=== PATIENT | male | born 1930 ===

== ENCOUNTER 2016-06-25 16:57 | Emergency (ER) | payer MEDICARE, OTHER ==
[~2016-06-25] VITALS: Ht 165.1 cm; Wt 74.5 kg
[~2016-06-25 16:57] MED LIST: AMLO10TA79 PO; ASPI81TA2 PO; CITA20TA2 PO; DONE10TA15 PO; FAMO40TA PO; FES300 PO; FURO20TA PO; GABA300C PO; HYDR1TAB90 PO; LIDO700A25 TP; LOPRESSOR25 MG PO; MELO15TA3 PO; NITR0.4T SL; OXYC5TAB72 PO; PRI20 PO; SIMV40TA5 PO; SIN10 PO; TIOT18CA IH; TYL325 PO; VIT1TABL83 PO; [UNRECOGNIZED DRUG - CODE] PO
[2016-06-25 17:00] VITALS: BP 142/78; PULSE 86; RESP 20; O2SAT 97
--- NOTE | 2016-06-25 17:27 | ED.REPORT ---
HPI-Back Pain 40 and Over Date of Service Jun 25, 2016 ED Provider: Simi Rooney History of Present Illness: 86-year-old male here for loss of bowel and bladder. For the last 3 days he has had 3 or 4 episodes a day of urinary and stool incontinence. He usually occurs when he is walking and states the urine or stool just comes out. The stool when it comes out as semisolid not like diarrhea. He has vague abdominal pain as well but no nausea or vomiting. He has not had an incontinent episode of stool today. He does not have any dysuria although he has had urinary incontinence today. He does have low back pain that is chronic. He was seen by his pain specialist today who sent him in here for further evaluation. He has numbness of his legs and this is chronic for him. No saddle anesthesia. He does not have any new back pain. He does not have pain down his legs. hx alcoholism Nursing Notes Stated Complaint: BACK PAIN Chief Complaint: Back Pain or Injury Nursing Notes Reviewed: Yes Allergies: Coded Allergies: No Known Allergies (Verified , 01/03/13) Scheduled Acetaminophen-Expunged Drug, Do Not Renew! (Tylenol-Expunged Drug, Do Not Renew! ) 325 Mg Tablet 650 MG PO Q6H AmLODIPine-Expunged Drug, Do Not Renew! (AmLODIPine-Expunged Drug, Do Not Renew! ) 10 Mg Tablet 5 MG PO AM Aspirin-Expunged Drug, Do Not Renew! (Aspirin-Expunged Drug, Do Not Renew!) 81 Mg Tablet 81 MG PO AM Citalopram-Expunged Drug, Do Not Renew! (Citalopram-Expunged Drug, Do Not Renew! ) 20 Mg Tablet 20 MG PO AM Cyanocobalamin (Vitamin B-12) (B-12) 500 Mcg Tablet 2,500 MCG PO AM Donepezil-Expunged Drug, Do Not Renew! (Donepezil-Expunged Drug, Do Not Renew!) 10 Mg/Udtablet Tab.rapdis 10 MG PO HS Famotidine-Expunged Drug, Do Not Renew! (Famotidine-Expunged Drug, Do Not Renew! ) 40 Mg Tablet 40 MG PO AM Ferrous Sulfate-Expunged Drug, Do Not Renew! (Feosol-Expunged Drug, Do Not Renew !) 325 Mg Tablet 325 MG PO PM Furosemide-Expunged Drug, Do Not Renew! (Lasix-Expunged Drug, Do Not Renew!) 20 Mg Tablet 40 MG PO AM Lidocaine (Lidocaine) 700 Mg Adh..patch TP NO SIG VERIFY DOSE AND SIG Meloxicam-Expunged Drug, Do Not Renew! (Meloxicam-Expunged Drug, Do Not Renew!) 15 Mg Tablet 15 MG PO NO SIG VERIFY SIG Metoprolol Tart-Expunged Drug, Do Not Renew! (Metoprolol Tart-Expunged Drug, Do Not Renew!) 25 Mg Tab 12.5 MG PO Q12 TAKE IN AM AND PM Montelukast-Expunged Drug, Do Not Renew! (Singulair-Expunged Drug, Do Not Renew! ) 10 Mg Tablet 10 MG PO PM Nitroglycerin-Expunged Drug, Do Not Renew! (Nitroglycerin SL-Expunged Drug, Do Not Renew!) 0.4 Mg Tab.subl 0.4 MG SL pr Omeprazole-Expunged Drug, Do Not Renew! (Omeprazole-Expunged Drug, Do Not Renew! ) 20 Mg Capcr 20 MG PO PM Simvastatin-Expunged Drug, Choose New Med! (Simvastatin-Expunged Drug, Choose New Med!) 40 Mg Tablet 40 MG PO HS Tiotropium Br-Expunged Drug, Do Not Renew! (Spiriva-Expunged Drug, Do Not Renew! ) 18 Mcg/Puff Pack 18 MCG IH DAILY Vit B Comp/C/Fa/Iron/Vit E-Expunged Drug, Do (Vitamin B Complex-Expunged Drug, Do Not Renew) 1 Each Tablet EACH PO NO SIG VERIFY DOSE AND SIG Scheduled PRN Gabapentin-Expunged Drug, Do Not Renew! (Neurontin-Expunged Drug, Do Not Renew! ) 300 Mg Capsule 300 MG PO TID PRN PRN PRN Hydrocodone Bit/Acetaminophen (Anexsia 5/325 Mg Tablet) 1 Tab Tablet TAB PO NO SIG PRN PRN VERIFY DOSE AND SIG oxyCODONE-Expunged, Do Not Renew! (oxyCODONE-Expunged, Do Not Renew!) 5 Mg Tablet 5 MG PO Q4-6H PRN PRN For Pain General Time Seen by MD: 17:24 Chief Complaint Back pain, Other (loss of bowel/bladder) Hx Obtained From: Patient Sudden in Onset?: No Onset Occurred: 4 days ago Caused by: Chronic Injury Severity: Current: Mild Severity: Maximum: Mild Recent Healthcare: Recent doctor visit Similar Sx Previous: No Review of Systems Basic Review of Systems Eyes: Vision NL, No discharge ENT: Hearing NL, No pain, No nasal congestion, No pharyngeal pain Constitutional: Denies: Chills, Fatigue, Fever, Lethargy, Malaise, Recent wt loss, Weakness - generalized Respiratory: Denies: Dyspnea on exertion, Hemoptysis, Non-productive cough, Parox nocturnal dyspnea, Pleuritic pain, Prod cough, bloody, Prod cough, brown, Prod cough, clear, Prod cough, green, Prod cough, white, Prod cough, yellow, Shortness of breath, Wheezing GI: Denies: Abdominal pain, Anorexia, Belching, Bloody/tarry stool, Constipation, Diarrhea, Dysphagia, Hematemesis, Hematochezia, Melena, Mucousy stool, Nausea, Rectal pain, Vomiting Male: Reports Incontinence, Denies Dysuria Musculoskeletal: Reports: Back pain Neurologic: Reports: Bladder dysfunction, Bowel dysfunction, Confusion Complete sys rev & neg: except as marked. Physical Exam Initial Vital Signs Vital Signs (First) Date Time Temp Pulse Resp B/P Pulse Ox O2 Delivery O2 Flow Rate FiO2 06/25/16 17:00 36.2 86 20 142/78 97 Room Air Initial VS: Reviewed Head / Eyes: Atraumatic, Normocephalic, PERRL ENT: Mucous membranes moist, Conjunctiva normal, No scleral icterus Neck: Supple, Non-tender, Full range of motion Skin: Warm, Dry, No cyanosis Psychiatric: Mood/affect normal, Behavior normal, Normal thought content General/Constitutional: Awake, Alert, No acute distress, Well appearing, Well developed, Well hydrated Respiratory / Chest: Breath sounds NL, Breath sounds = bilat, No respiratory distress, No rales, No rhonchi, No wheezing Cardiovascular: Heart rate NL, Regular rhythm, Heart sounds NL, No murmurs, Peripheral circulation NL Abdomen: Atraumatic, Soft, Non-tender, No guarding, No rebound, BS normoactive , No distention, No palpable mass, No pulsatile mass Back: Atraumatic, Inspection NL, Full range of motion, Painless range of motion , Non-tender, No midline vertebral tend, No paraspinal tenderness, No muscle spasm, Straight leg raise neg, No CVA tenderness Straight Leg Raise: Positive: Strt leg raise + L 50 deg, Strt leg raise + R 50 deg walks slowly with walker, without limp Neurologic: Oriented X3, Speech NL, No motor deficits, No sensory deficits, Reflexes equal bilat unalbe to elicit patellar reflexes. rectal tone intact. LE strength intact equally. sensation intact Neck: Atraumatic, Supple, No meningismus, Full range of motion, No swelling, Non-tender, No midline vertebral tend, No masses, No crepitus Lower Extremity / Pelvis / MS: Atraumatic, Inspection NL, No swelling, Non- tender, No erythema, No deformity, Neurologic intact, Vascular intact, No edema Rectum / Perineum: Blood - occult heme -, Sphincter tone NL, Prostate NL, No saddle anesthesia Interpretation & Diagnostics Interpretation & Diagnostics: MR#: [id number] Location: [facility] [place] Ordering Phys: Simi Rooney [facility] Date of Service: 06/25/161924 PROCEDURE: X-RAY ACUTE ABDOMINAL SERIES ([id number]) INDICATIONS: Abdominal pain TECHNIQUE: One view chest and two views of the abdomen were acquired. COMPARISON: [facility], , CHEST 2VW, 09/28/2013, 16:00. [facility], , CHEST 2VW, 05/21/2014, 17:48. [facility], CR, ABD W/ERECT +/OR DECB, 01/03/2013, 10:54. FINDINGS: Surgical changes and devices: None. Chest: No acute consolidation. There is a calcified pleural plaque peripherally in the left hemithorax again noted. Heart size is at upper limits of normal. No pleural effusions. No pneumoperitoneum. Abdomen: Bowel gas pattern is within normal limits. No suspicious calcifications. Bones: No suspicious bony lesions. There is a mild leftward curvature of the lumbar spine. IMPRESSION: 1. No acute intra-abdominal radiographic abnormality. Lab Results Interpretation Result Diagram: 06/25/16 1800 06/25/16 1800 Test 06/25/16 18:00 06/25/16 18:04 White Blood Count 8.1th/mm3 (3.8-10.1) Red Blood Count 3.81mil/mm3 (4.40-5.80) Hemoglobin 12.1g/dL (13.8-17.2) Hematocrit 36.7% (41.0-50.0) Mean Corpuscular Volume 96.3fL (81-100) Mean Corpuscular Hemoglobin 31.8pg (27.0-35.0) Mean Corpuscular Hemoglobin Concent 33.0% (32.0-37.0) Red Cell Distribution Width 13.3% (12.3-15.4) Platelet Count 291bil/L (150-400) Neutrophils (%) (Auto) 64.9% (40-74) Lymphocytes (%) (Auto) 20.7% (14-46) Monocytes (%) (Auto) 10.5% (4-12) Eosinophils (%) (Auto) 3.0% (0-5) Basophils (%) (Auto) 0.7% (0-3) Sodium Level 138mEq/L (134-144) Potassium Level 4.1mEq/L (3.5-5.2) Chloride Level 102mEq/L (97-108) Carbon Dioxide Level 22mmol/L (18-29) Blood Urea Nitrogen 16mg/dL (8-27) Creatinine 1.17mg/dL (0.76-1.27) Estimat Glomerular Filtration Rate 63mL/min (>59) Glucose Level 120mg/dL (60-99) Calcium Level 8.9mg/dL (8.5-10.1) Total Bilirubin 0.2mg/dL (0.0-1.2) Aspartate Amino Transf (AST/SGOT) 21U/L (0-50) Alanine Aminotransferase (ALT/SGPT) 14U/L (0-44) Alkaline Phosphatase 99U/L (25-160) Total Protein 7.3g/dL (6.4-8.4) Albumin 3.8g/dL (3.4-5.0) Alcohols < 10mg/dL (0-10) Urine Color Yellow (YELLOW) Urine Appearance Clear (CLEAR,HAZY) Urine pH 6.0 (5.0-8.0) Urine Specific Wilson 1.010 (1.003-1.035) Urine Protein Negativemg/dL (NEG,TRACE) Urine Glucose (UA) Negativemg/dL (NEGATIVE) Urine Ketones Negativemg/dL (NEGATIVE) Urine Occult Blood Negative (NEGATIVE) Urine Nitrite Negative (NEGATIVE) Urine Bilirubin Negative (NEGATIVE) Urine Urobilinogen Normalmg/dL (NORMAL) Urine Leukocyte Esterase Trace (NEGATIVE) Urine RBC 0-2/hpf (0-2) Urine WBC 0-5/hpf (0-5) Urine Epithelial Cells Occasional/hpf (NONE-MOD) Urine Crystals None seen (NONE SEEN) Urine Bacteria None/hpf (NONE-FEW) Urine Hyaline Casts None/lpf (NONE) Urine Granular Casts None seen (NONE SEEN) Urine Waxy Casts None seen (NONE SEEN) Urine Red Blood Cell Casts None seen (NONE SEEN) Urine White Blood Cell Casts None seen (NONE SEEN) Urine Mucus None seen (None Seen) Urine Trichomonas None seen (NONE SEEN) Urine Yeast None (NONE SEEN) Urinalysis Comment None Re-Eval/Medical Decision Med Decision/Clinical Course Patient clarifies that when he has a bowel movement in his pants is just a tiny little bit but is not necessarily related to passing gas. When he urinates and is pain it is just a few dribbles does not necessarily a full stream of urination. the only time he needs to go urinate is when he is walking. discussed with dr beck. agrees wtih d/c and f/u with pcp pt neuro intact upon d/c walking without limp usinng walker. LE strenght good. Discharge & Departure Shift Change Sign-Out Laboratory Evaluation: Lab evaluation discussed Imaging Studies: Imaging discussed Response to Therapy: Improved Impression: Primary Impression: Low back pain Chronicity: unspecified Back pain laterality: unspecified Sciatica presence : without sciatica Qualified Code: M54.5 - Low back pain Additional Impression: Urinary bladder incontinence Urinary Incontinence type: stress incontinence Qualified Code: N39.3 - Stress incontinence (female) (male) Disposition: Home Discharge Condition All VS Reviewed: Yes Condition: Stable Additional Instructions: Follow-up with your doctor in 1-2 days. Use pain meds as prescribed. return if symptoms become severe, you get urinary symptoms, fevers, or lower extremety weakness or severe back pain Referrals: Rose Marie Rendon (PCP) EDSupervising Provider for APC: Wilver Beck MD, Linnea K ARNP Jun 25, 2016 17:27
[2016-06-25 18:08] LABS: BASOPHILS % (AUTO) 0.7 % (0-3); MONOCYTES % (AUTO) 10.5 % (4-12); Mean Corpuscular Hemoglobin 31.8 pg (27.0-35.0); Mean Corpuscular Volume 96.3 fL (81-100); NEUTROPHILS % (AUTO) 64.9 % (40-74); Platelet Count 291 bil/L (150-400)
[2016-06-25 18:20] LABS: APPEARANCE,URINE CLEAR (CLEAR,HAZY); COLOR,URINE YELLOW (YELLOW); OCCULT BLOOD,URINE NEGATIVE (NEGATIVE); UROBILINOGEN,URINE NORMAL (NORMAL)
[2016-06-25 19:27] VITALS: BP 124/63; PULSE 67; RESP 18; O2SAT 94
--- NOTE | 2016-06-25 20:52 | DRSVH ---
PROCEDURE: X-RAY ACUTE ABDOMINAL SERIES ([id number]) INDICATIONS: Abdominal pain TECHNIQUE: One view chest and two views of the abdomen were acquired. COMPARISON: [facility], CR, CHEST 2VW, 09/28/2013, 16:00. [facility], CR, C HEST 2VW, 05/21/2014, 17:48. [facility], CR, ABD W/ERECT +/OR DECB, 01/03/2013, 10:54. FINDINGS: Surgical changes and devices: None. Chest: No acute consolidation. There is a calcified pleural plaque peripherally in the left hemitho rax again noted. Heart size is at upper limits of normal. No pleural effusions. No pneumoperitoneu m. Abdomen: Bowel gas pattern is within normal limits. No suspicious calcifications. Bones: No suspicious bony lesions. There is a mild leftward curvature of the lumbar spine. IMPRESSION: 1. No acute intra-abdominal radiographic abnormality. Dictated by: Lj Alfaro M.D. on 06/25/2016 at 20:48 Approved by: Lj Alfaro M.D. on 06/25/2016 at 20:50
[2016-06-25 21:53] VITALS: BP 132/59; PULSE 74; O2SAT 97
== END 2016-06-25 21:55 | disposition home or self-care (01) ==
LOC: SED 16:57
DX: M54.5 Low back pain (principal); N39.3 Stress incontinence (female) (male); I10 Essential (primary) hypertension; D50.9 Iron deficiency anemia, unspecified; K21.9 Gastro-esophageal reflux disease without esophagitis; R41.3 Other amnesia; Z79.82 Long term (current) use of aspirin
CPT/HCPCS: 36415; 74022; 80053; 81001; 85025; 99284; G0480